=== PATIENT | male | born 1935 | race Caucasian/White ===

== ENCOUNTER 2016-10-22 12:07 | Emergency (ER) | payer SELFPAY ==
[2016-10-22 12:45] LABS: Hematocrit 30.2 % (42.0-52.0); Mean Cell Volume 101.7 fl (78-100); Mean Corpuscular Hemoglobin 33.7 pg (27-31); Mean Corpuscular Hgb Conc 33.1 g/dl (32-36); Mean Platelet Volume 10.7 fl (6.0-9.5); Neutrophil # 6.6 K/mm3 (1.3-6.0); Neutrophil % 72.3 % (42-75.0); Platelet Count 243 K/mm3 (150-450); Red Blood Count 2.97 M/mm3 (4.7-6.0); Red Cell Distribution Width 16.1 % (11.5-14.0); White Blood Count 9.1 K/mm3 (4.0-10.5)
--- OUTSIDE RECORDS SUMMARY | 2016-10-22 12:54 | XMS REPORT | Continuity of Care Document ---
:1935 Author Organization [facility] [place] [address] Care Team Providers Name Role Phone Unavailable Primary Care Provider Unavailable Source Comments This disclosure is being made pursuant to the [employer] program and maynot contain all information available regarding this patient.[facility] Active Allergies and Adverse Reactions Not on File Current Medications Be aware that medications may not be up to date as of this document. Alwaysverify current medications with the patient. Not on file Active Problems Not on file Social History Tobacco Use Types Packs/Day Years Used Date Never Assessed Plan of Care Health Maintenance Due Date Last Done Comments Retired-Pertussis Vaccine Adult 1954 Retired-Tetanus Vaccine Adult 1954 Well Adult Visit 1984 Zoster Vaccine 60+ 1994 Retired-Pneumococcal 23 Vaccine-65+ yo 1999 Retired-INFLUENZA VACCINE 02/11/2015 Results from Last 3 Months Not on file
[2016-10-22 13:04] LABS: Albumin * 2.6 gm/dl (3.4-5.0); Anion Gap 16.2 mmol/L (6.8-13.8); BUN/Creatinine Ratio 10.8 (9.0-21.6); Bilirubin, Total 0.8 mg/dL (0.0-1.1); Ca. Corrected For Albumin 9.5 mg/dL (8.4-10.2); Calcium * 8.7 mg/dL (7.9-10.9); Carbon Dioxide 24.3 mmol/L (24-32.6); Potassium 3.5 mmol/L (3.4-4.6); Total Protein 5.9 gm/dL (6.2-8.2); Troponin I 0.021 ng/ml (0.00-0.10)
--- NOTE | 2016-10-22 13:28 | ERNOTE ---
Dyspnea - Date Date of Service: 10/22/16 - General Time Seen by Provider: 10/22/16 12:47 Source: patient Exam Limitations: no limitations - Immun/Allergies/Home Medications Immunizations: IMMUNIZATION HX Immunizations Up to Date Yes History of Influenza Vaccine More Information Required Hx Pneumococcal Vaccination More Information Required Allergies/Adverse Reactions: Allergies No Known Allergies Allergy (Unverified 10/22/16 12:25) Home Medications: HOME MEDICATIONS Allopurinol [Zyloprim (Allopurinol)] 100 mg PO DAILY 10/22/16 [Last Taken Unknown] Furosemide [Lasix] 20 mg PO DAILY 10/22/16 [Last Taken Unknown] Potassium Chloride [Klor-Con 10] 10 meq PO DAILY 10/22/16 [Last Taken Unknown] Ramelteon [Rozerem] 8 mg PO HS 10/22/16 [Last Taken Unknown] Suvorexant [Belsomra] 10 mg PO HS 10/22/16 [Last Taken Unknown] Temazepam [Restoril] 7.5 mg PO HS 10/22/16 [Last Taken Unknown] amLODIPine BESYLATE [Norvasc] 10 mg PO DAILY 10/22/16 [Last Taken Unknown] - History of Present Illness Narrative: Pt. comes in with daughter in law and c/o dyspnea for two weeks. Pt. denies any CP, NVD, but states that he has back pain. Pt. is poor historian and is unaware of history or medications. Daughter in law denies any recent falls but does state that pt. has had increased weakness, forgetfullness, and heart disease including CHF. Review of Systems - Review of Systems Constitutional: Present: weakness, fatigue. Absent: fever, chills, malaise EYE: Present: no symptoms reported ENT: Present: no symptoms reported. Absent: nose pain, nose congestion, nasal drainage, sore throat Respiratory: Present: no symptoms reported. Absent: shortness of breath, cough , wheezing Cardiology: Present: edema - L arm, R leg, . Absent: chest pain, palpitations Gastrointestinal/Abdominal: Present: no symptoms reported. Absent: nausea, vomiting, diarrhea, abdominal pain Genitourinary: Present: no symptoms reported Musculoskeletal: Present: back pain. Absent: neck pain, joint pain Skin: Present: no symptoms reported Neurological: Present: no symptoms reported. Absent: headache, dizziness/light- headedness, numbness, tingling All Other Systems: All systems neg except as marked - Patient's Past Medical History Patient History - Cardiac/Respiratory: Coronary Heart Disease, CHF Patient History - Surgical Procedures: Cardiac stent - Social History Smoking Status: Former smoker - Immunizations Immunizations Up to Date: Yes Hx Pneumococcal Vaccination: More Information Required to Determine History of Influenza Vaccine: More Information Required to Determine Physical Exam - Physical Exam General Appearance: Present: wd/wn, alert, no apparent distress Eye Exam: Normal inspection: bilateral, PERRL: bilateral, EOMI: bilateral Ears, Nose, Throat: Present: normal ENT inspection, normal pharynx Neck: Present: normal inspection, nontender. Absent: lymphadenopathy (R), lymphadenopathy (L) Respiratory: Present: no respiratory distress, no accessory muscle use, decreased breath sounds - bases, rhonchi - throughout Cardiovascular/Chest: Present: no murmur, normal peripheral pulses, irregularly irregular Gastrointestinal/Abdominal: Present: normal bowel sounds, nontender, nondistended, soft, no organomegaly Back Exam: Present: normal inspection, normal range of motion, no CVA tenderness , no vertebral tenderness Extremity Exam: Present: non-tender, normal range of motion, extremity edema - L +2 R +4 lower, L+3 R trace upper. Absent: calf tenderness Neurological Exam: Present: alert, oriented, normal mood/affect, no motor/ sensory deficits Skin Exam: Present: normal color, warm/dry. Absent: pallor, skin rash ED Progress - Date and Time Seen: Date and Time: 10/22/16 15:[address] Irving and she recommends transferring pt. to [facility] for Nephrlogy and Cardiology and CRRT. Discussed with Dr Saldana at [facility] and he accepts transfer of pt. - Results and Orders Patient's Lab Results:: I have reviewed the patient's lab results. - Vital Signs Patient's Vital Signs:: I have reviewed the patient's vital signs. Vital Signs: Vital Signs 10/22/16 12:18 Pulse Rate 87 Respiratory 16 Rate Blood Pressure 139/73 O2 Sat by Pulse 95 Oximetry - Progress/Reassessment Chief Complaint: Dyspnea Progress:: Improved Departure Clinical Impression: Acute on chronic renal failure Qualifiers: Acute renal failure type: unspecified Chronic kidney disease stage: unspecified stage Qualified Code(s): N17.9 - Acute kidney failure, unspecified; N18.9 - Chronic kidney disease, unspecified Acute on chronic congestive heart failure Qualifiers: Congestive heart failure type: unspecified congestive heart failure type Qualified Code(s): I50.9 - Heart failure, unspecified - Departure Disposition: [facility] Condition: Serious
[2016-10-22] MEDS ORDERED: FUROSEMIDE 10 MG/ML VIAL IV ONE (13:46)
[2016-10-22] MEDS ORDERED: FUROSEMIDE 10 MG/ML VIAL ONE (14:12)
[2016-10-22 14:41] LABS: Urine Bilirubin Negative (NEGATIVE); Urine Blood Negative /ul (NEGATIVE); Urine Ketone Negative (NEGATIVE); Urine Nitrite Negative (NEGATIVE); Urine Protein 15 mg/dL (NEGATIVE); Urine Specific Gravity 1.015 SP.GR. (1.005-1.030); Urine Urobilinogen Normal (NORMAL)
[2016-10-22 14:54] LABS: Urine Appearance Clear; Urine Bacteria None Seen; Urine Color Yellow; Urine RBC None Seen /hpf (0-5); Urine WBC None Seen /hpf (0-5)
[2016-10-22 16:05] VITALS: BP 138/60
== END 2016-10-22 16:29 | disposition short-term general hospital (02) ==
LOC: ER 12:07
DX: N17.9 Acute kidney failure, unspecified (principal); I50.9 Heart failure, unspecified; I25.2 Old myocardial infarction